=== PATIENT | female | born 1970 | race Caucasian/White ===

== ENCOUNTER 2020-05-27 20:55 | Emergency (ER) | payer OTHER ==
[2020-05-27 21:25] LABS: BASOPHILS % (AUTO) 0.2 % (0.0-5.0); EOSINOPHILS % (AUTO) 1.6 % (0.0-8.0); HEMATOCRIT 47.7 % (36-48); LYMPHOCYTES % (AUTO) 32.1 % (21.0-51.0); MEAN CORPUSCULAR HEMOGLOBIN 30.4 pg (27.0-33.0); MEAN CORPUSCULAR HGB CONC 34.4 g/dL (32.0-36.0); MEAN CORPUSCULAR VOLUME 88.5 fL (79-99); MONOCYTES % (AUTO) 6.6 % (3.0-13.0); NEUTROPHILS % (AUTO) 59.2 % (40.0-77.0); PLATELET COUNT (AUTO) 339 K/uL (130-400); RED BLOOD CELL COUNT(AUTO) 5.39 MIL/uL (4.00-5.50); RED CELL DISTRIBUTION WIDTH 12.5 % (11.0-15.5); WHITE BLOOD COUNT (AUTO) 9.1 K/uL (4.8-10.8)
[2020-05-27 21:28] LABS: APPEARANCE,URINE Cloudy (CLEAR); BILIRUBIN,URINE Negative (NEGATIVE); COLOR,URINE Yellow (YELLOW); GLUCOSE, URINE (UA) Negative (NEGATIVE); KETONES,URINE 15 mg/dL (NEGATIVE); LEUKOCYTE ESTERASE ,URINE Moderate (NEGATIVE); NITRATE,URINE Negative (NEGATIVE); OCCULT BLOOD,URINE Negative (NEGATIVE); PROTEIN,URINE Negative (NEGATIVE)
[2020-05-27 21:38] LABS: BACTERIA,URINE Few /HPF (None Seen); MUCUS,URINE Moderate LPF (None Seen); SQUAMOUS EPITHELIAL CELL,UR Moderate /HPF (0-2)
[2020-05-27 21:39] LABS: CREATININE 0.7 mg/dL (0.5-1.5); POTASSIUM 4.5 mmol/L (3.5-5.1)
[2020-05-27 21:46] LABS: ALBUMIN 4.3 g/dL (3.5-5.0); TOTAL PROTEIN, SERUM 8.6 g/dL (6.0-8.3)
[2020-05-27] MEDS ORDERED: METOCLOPRAMIDE 10 MG/2 ML VIAL ONE (22:07)
[2020-05-27] MEDS ORDERED: FAMOTIDINE/PF 20 MG/2 ML VIAL IV ONE (22:08)
[2020-05-27] MEDS ORDERED: PANTOPRAZOLE 40 MG/VIAL ONE (22:08)
[2020-05-27] MEDS ORDERED: ONDANSETRON HCL 4 MG/2 ML VIAL ONE (22:08)
[2020-05-27] MEDS ORDERED: DiphenhydrAMINE HCL 50 MG/ML VIAL ONE (23:53)
== END 2020-05-28 00:04 | disposition home or self-care (01) ==
LOC: EDH 20:55
DX: E86.0 Dehydration (principal); R11.10 Vomiting, unspecified; I10 Essential (primary) hypertension; Z90.49 Acquired absence of other specified parts of digestive tract; Z90.710 Acquired absence of both cervix and uterus
CPT/HCPCS: 36415; 71045; 76705; 80053; 81001; 83690; 84484; 85025; 87088; 93005; 96361; 96374; 96375; 99285; C9113; J1200; J2405; J2765; J3490

== ENCOUNTER 2020-11-26 12:23 | Emergency (ER) | payer OTHER ==
[~2020-11-26] VITALS: Ht 167.6 cm; Wt 86.2 kg
[2020-11-26 12:28] VITALS: BP 206/89
[2020-11-26] MEDS ORDERED: DiphenhydrAMINE HCL 50 MG/ML VIAL IV ONE (12:30)
[2020-11-26] MEDS ORDERED: PROCHLORPERAZINE 10MG/2ML INJ IV ONE (12:30)
[2020-11-26] MEDS ORDERED: 0.9%NACL 1000ML 1,000 ML IV ONE (12:52)
[2020-11-26 12:58] LABS: BASOPHILS % (AUTO) 0.4 % (0.0-5.0); EOSINOPHILS % (AUTO) 1.4 % (0.0-8.0); HEMATOCRIT 47.8 % (36-48); LYMPHOCYTES % (AUTO) 20.9 % (21.0-51.0); MEAN CORPUSCULAR HEMOGLOBIN 29.9 pg (27.0-33.0); MEAN CORPUSCULAR HGB CONC 34.5 g/dL (32.0-36.0); MEAN CORPUSCULAR VOLUME 86.8 fL (79-99); MONOCYTES % (AUTO) 5.3 % (3.0-13.0); NEUTROPHILS % (AUTO) 71.6 % (40.0-77.0); PLATELET COUNT (AUTO) 341 K/uL (130-400); RED BLOOD CELL COUNT(AUTO) 5.51 MIL/uL (4.00-5.50); RED CELL DISTRIBUTION WIDTH 13.1 % (11.0-15.5); WHITE BLOOD COUNT (AUTO) 13.3 K/uL (4.8-10.8)
[2020-11-26 13:08] LABS: POTASSIUM 3.8 mmol/L (3.5-5.1)
[2020-11-26 13:12] LABS: ALBUMIN 4.3 g/dL (3.5-5.0); TOTAL PROTEIN, SERUM 8.2 g/dL (6.0-8.3)
[2020-11-26 14:12] VITALS: BP 191/101
[2020-11-26 14:16] LABS: APPEARANCE,URINE Clear (CLEAR); BILIRUBIN,URINE Negative (NEGATIVE); COLOR,URINE Yellow (YELLOW); GLUCOSE, URINE (UA) Negative (NEGATIVE); KETONES,URINE Trace mg/dL (NEGATIVE); LEUKOCYTE ESTERASE ,URINE Trace (NEGATIVE); NITRATE,URINE Negative (NEGATIVE); OCCULT BLOOD,URINE Large (NEGATIVE); PROTEIN,URINE Trace mg/dL (NEGATIVE); UROBILINOGEN,URINE 0.2 mg/dL (0.2-1.0)
[2020-11-26 14:24] LABS: HCG,QUAL RESULT NEGATIVE (NEGATIVE)
[2020-11-26 14:25] LABS: AMPHET/METH SCREEN,URINE NEGATIVE (NEGATIVE); BARBITURATE SCREEN, URINE NEGATIVE (NEGATIVE); BENZODIAZEPINES SCREEN,URINE POSITIVE (NEGATIVE); CANNABINOID SCREEN,URINE NEGATIVE (NEGATIVE); COCAINE SCREEN,URINE POSITIVE (NEGATIVE); OPIATE SCREEN,URINE NEGATIVE (NEGATIVE); PHENCYCLIDINE SCREEN,URINE NEGATIVE (NEGATIVE)
[2020-11-26 14:36] LABS: BACTERIA,URINE Few /HPF (None Seen); MUCUS,URINE Few LPF (None Seen); RBC,URINE 26-50 /HPF (0-1); SQUAMOUS EPITHELIAL CELL,UR Few /HPF (0-2)
[2020-11-26] MEDS ORDERED: CEFTRIAXONE 1G VIAL ONE (14:49)
[2020-11-26] MEDS ORDERED: CEFTRIAXONE 1G VIAL IVP ONE (15:00)
[2020-11-26] MEDS ORDERED: DICYCLOMINE 20MG (10MG/ML) AMP IM STA (15:20)
[2020-11-26] MEDS ORDERED: ONDA4TAB4 PO (15:40)
[2020-11-26] MEDS ORDERED: DICY20TA2 PO (15:40)
[2020-11-26] MEDS ORDERED: HYDRALAZINE 20MG/ML VIAL IV SCH (16:00)
[2020-11-26 16:16] VITALS: BP 173/97
== END 2020-11-26 16:39 | disposition home or self-care (01) ==
LOC: EDH 12:23 → EDBD 12:23 → EDH 16:39
DX: R10.13 Epigastric pain (principal); R11.2 Nausea with vomiting, unspecified; K76.0 Fatty (change of) liver, not elsewhere classified; F14.20 Cocaine dependence, uncomplicated; R03.0 Elevated blood-pressure reading, without diagnosis of hypertension; Z20.822 Contact with and (suspected) exposure to COVID-19; E66.9 Obesity, unspecified; Z68.30 Body mass index [BMI] 30.0-30.9, adult; Z79.899 Other long term (current) drug therapy
CPT/HCPCS: 36415; 71045; 74176; 76705; 80053; 80305; 81001; 81025; 83690; 84484; 85025; 87635; 93005; 96361; 96372; 96374; 96375; 99285; C9803; J0360; J0500; J0696; J0780; J1200; J7030

== ENCOUNTER 2022-02-25 08:08 | Emergency (ER) | payer OTHER ==
[~2022-02-25] VITALS: Ht 167.6 cm; Wt 86.2 kg
[~2022-02-25 08:08] MED LIST: DICY20TA2 PO; ONDA4TAB4 PO
[2022-02-25 08:10] VITALS: BP 149/90
[2022-02-25] MEDS ORDERED: IBUP-2070 PO (10:12)
== END 2022-02-25 10:23 | disposition home or self-care (01) ==
LOC: EDH 08:08
DX: S82.891A Other fracture of right lower leg, initial encounter for closed fracture (principal); F32.9 Major depressive disorder, single episode, unspecified; F41.9 Anxiety disorder, unspecified; I10 Essential (primary) hypertension; Z90.710 Acquired absence of both cervix and uterus; W01.0XXA Fall on same level from slipping, tripping and stumbling without subsequent striking against object, initial encounter; Y93.89 Activity, other specified; Y92.89 Other specified places as the place of occurrence of the external cause; Y99.8 Other external cause status
CPT/HCPCS: 73610